=== PATIENT | female | born 1950 | race Caucasian/White ===

== ENCOUNTER → 2021-03-19 | Outpatient (CLI) | payer OTHER | LOC: HEART CORB 03-12 09:30 | DX: R94.31 Abnormal electrocardiogram [ECG] [EKG] (principal); I50.9 Heart failure, unspecified; I48.19 Other persistent atrial fibrillation; I08.1 Rheumatic disorders of both mitral and tricuspid valves | CPT/HCPCS: 78452; 93306; A9502; J2785 ==